=== PATIENT | male | born 1960 | race Caucasian/White ===

== ENCOUNTER 2021-08-30 21:58 | Emergency (ER) | payer OTHER ==
[2021-08-30 22:19] VITALS: BP 166/94; PULSE 63; O2SAT 98
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
== END 2021-08-30 22:50 | disposition home or self-care (01) ==
LOC: ED 21:58
DX: S01.511A Laceration without foreign body of lip, initial encounter (principal); W25.XXXA Contact with sharp glass, initial encounter; F10.129 Alcohol abuse with intoxication, unspecified; Z72.0 Tobacco use
CPT/HCPCS: 12011; 99283

== ENCOUNTER 2021-11-23 13:50 | Emergency (ER) | payer OTHER ==
[2021-11-23] MEDS ORDERED: Zofran 4 MG/2 ML VIAL IV ONE (14:04)
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
--- NOTE | 2021-11-23 14:06 | XRAY ---
Indication: Left-sided weakness. Status post fall. CVA. Multiple contiguous axial images obtained through the head without contrast. Comparison: None Normal appearing brain parenchyma, ventricles, and bony calvarium for patient's age. Visualized paranasal sinuses and mastoid air cells are clear. Impression: Normal CT head without contrast exam.
--- NOTE | 2021-11-23 14:14 | XRAY ---
Indication: Status post fall. Left-sided weakness. CVA. Multiple contiguous axial images obtained through the facial bones. Sagittal and coronal reformatted images obtained. Comparison: None Axial images negative for acute fracture, suspicious bony lesions, or radiopaque foreign body. Orbits including roof, craven, and floors intact. Floor left maxillary sinus demonstrates 1.6 cm polyp/retention cyst. Remaining minimal mucosal thickening floor of the right maxillary sinus. Remaining paranasal sinuses and nasal passages are clear. Mild nasal septal deviation to the left. Remaining visualized noncontrasted soft tissues are unremarkable. Impression: Negative CT facial bones. Incidental left maxillary sinus polyp/retention cyst and minimal paranasal sinus disease.
--- NOTE | 2021-11-23 14:16 | XRAY ---
Indication: Status post fall. Left-sided weakness. CVA. Multiple contiguous axial images obtained through the cervical spine. Sagittal and coronal reformatted images obtained. Comparison: None Axial images negative for acute fracture, suspicious bony lesions, or spinal canal stenosis. Minimal/mild C4-C7 degenerative endplate spurring. Minimal/mild multilevel bilateral degenerative facet hypertrophy. Sagittal and coronal reformatted images demonstrates cervical lordotic straightening, positional versus paraspinal spasm. Mild C5-C7 disc space narrowing. No acute compression fracture, subluxation, or jumped facet. Normal appearing craniocervical junction. Visualized noncontrasted soft tissues demonstrates moderate carotid calcifications, left greater than right. Right lung apex demonstrates tiny fibrosis/scarring with calcified granuloma. Impression: 1. Cervical lordotic straightening, positional versus paraspinal spasm. 2. Negative acute fracture/subluxation. 3. Multilevel degenerative changes and arteriosclerotic disease.
[2021-11-23] MEDS ORDERED: Zofran 4 MG/2 ML VIAL ONE (14:26)
[2021-11-23 14:38] LABS: Absolute Neutrophil Ct (ANC) 9.86 (1.4-6.9); Basophil (Absolute #) 0.02 (0-0.4); Eosinophil (Absolute #) 0 (0-0.5); Hematocrit 53.7 % (42-50); Hemoglobin 18.9 gm/dl (12.5-18.0); Lymphocytes % 4.2 % (24.0-44.0); Mean Cell Volume 97.5 fl (78-100); Mean Corpuscular Hemoglobin 34.3 pg (26-32); Mean Corpuscular Hgb Concent. 35.2 g/dl (32-36); Mean Platelet Volume 10.6 fl (7.5-11.0); Monocyte (Absolute #) 1.43 (0.0-1.3); Monocytes % 12.1 % (0.0-12.0); Neutrophil % 83.5 % (36.0-66.0); Platelet Count 128 K/mm3 (150-450); Red Blood Count 5.51 M/mm3 (4.1-5.6); Red Cell Distribution Width 13.1 % (11.5-14.0); White Blood Count 11.8 K/mm3 (4.0-10.5)
[2021-11-23] MEDS ORDERED: Sodium Chloride 0.9% 1000 ML 1,000 ML IV STA ×2 (15:11→15:36)
[2021-11-23] MEDS ORDERED: Sodium Chloride 0.9% 1000 ML 1,000 ML ONE ×3 (15:13→17:42)
[2021-11-23 15:17] LABS: ACETAMINOPHEN < 10 ug/ml (10-30); ALBUMIN 4.9 g/dL (3.5-5.0); ALKALINE PHOSPHATASE 83 U/L (38-126); ANION GAP 21.2 MEQ/L (5-15); BLOOD UREA NITROGEN 27 mg/dL (9-20); CHLORIDE 94 mmol/L (98-107); Calcium 9.9 mg/dL (8.4-10.2); Carbon Dioxide 24 mmol/L (22-30); Creatinine 1 2.49 mg/dL (0.66-1.25); EST GLOMERULAR FILTRATION RATE 28.2 ML/MIN; ETHYL ALCOHOL < 10 mg/dL (0-10); Glucose 221 mg/dL (74-106); Potassium 3.8 mmol/L (3.5-5.1); SALICYLATE < 1.0 mg/dL (2-20); SGOT/AST 202 U/L (17-59); SODIUM 136 mmol/L (137-145); Total Protein 9.5 g/dL (6.3-8.2)
[2021-11-23 15:23] LABS: SGPT/ALT 114 U/L (0-50)
[2021-11-23] MEDS ORDERED: MORPHINE SULFATE 2 MG INJ IV ONE (17:06)
[2021-11-23] MEDS ORDERED: LOPRESSOR 5 MG/5 ML INJECTION IV ONE ×2 (17:07→17:41)
[2021-11-23] MEDS ORDERED: Sodium Chloride 0.9% 1000 ML 1,000 ML IV SCH (17:15)
[2021-11-23 17:42] LABS: Appearance SLIGHTLY CLOUDY (CLEAR); Bilirubin SMALL (NEGATIVE); Dipstick done @ ? MAIN LAB; Glucose NEGATIVE (NEGATIVE); Ketones NEGATIVE (NEGATIVE); Nitrite NEGATIVE (NEGATIVE); Protein,Urine Dip >=300 (Negative); RBC LARGE Ery/ul (0-5); Specific Gravity 1.025 (1.005-1.025); Urobilinogen 0.2 mg/dL (0-1)
[2021-11-23] MEDS ORDERED: MORPHINE SULFATE 2 MG INJ ONE (17:42)
[2021-11-23] MEDS ORDERED: ENOXAPARIN SODIUM SQ ONE ×2 (17:48→17:59)
[2021-11-23 17:49] LABS: Amphetamine,Urine NEGATIVE (NEGATIVE); Barbiturate,Urine NEGATIVE (NEGATIVE); Benzodiazepine,Urine NEGATIVE (NEGATIVE); Cocaine,Urine NEGATIVE (NEGATIVE); Methadone,Urine NEGATIVE (NEGATIVE); Opiate,Urine NEGATIVE (NEGATIVE); PCP,Urine NEGATIVE (NEGATIVE); THC,Urine POSITIVE (NEGATIVE)
[2021-11-23 17:55] LABS: Bacteria NONE SEEN /HPF (NEGATIVE); Epithelial Cells RARE /HPF (FEW); Mucus SLIGHT /HPF (NEGATIVE); Urine Cultured Indicated? YES
[2021-11-23 18:03] VITALS: BP 114/89; PULSE 72; O2SAT 95
[2021-11-23 19:21] LABS: Slide Review 1 YES
== END 2021-11-23 18:05 | disposition short-term general hospital (02) ==
LOC: ED 13:50
DX: I21.4 Non-ST elevation (NSTEMI) myocardial infarction (principal); I10 Essential (primary) hypertension; R41.82 Altered mental status, unspecified; N17.9 Acute kidney failure, unspecified; R74.8 Abnormal levels of other serum enzymes; R53.1 Weakness; Z72.0 Tobacco use
CPT/HCPCS: 36000; 36415; 70450; 70486; 72125; 80053; 80307; 81015; 84484; 85025; 87086; 93005; 96360; 96372; 96374; 96375; 99285; 99291; G0480; J1650; J2270; J2405